=== PATIENT | female | born 1980 | race Caucasian/White ===

== ENCOUNTER 2016-12-30 16:43 | Emergency (ER) | payer OTHER ==
[2016-12-30 17:31] VITALS: BP 147/98; PULSE 118; TEMP 98.4; BMI 39.3
[2016-12-30 18:34] LABS: PH,URINE 5.5 (5.0-8.0); URINE APPEARANCE CLEAR; URINE BILIRUBIN NEGATIVE (NEGATIVE); URINE BLOOD 1+ (NEGATIVE); URINE COLOR LT. YELLOW; URINE GLUCOSE (UA) NEGATIVE (NEGATIVE); URINE KETONE NEGATIVE (NEGATIVE); URINE LEUK ESTERASE NEGATIVE (NEGATIVE); URINE NITRITE NEGATIVE (NEGATIVE); URINE PROTEIN NEGATIVE (NEGATIVE); URINE UROBILINOGEN 0.2 mg/dL (0.2-1.0)
[2016-12-30] MEDS ORDERED: KETOROLAC TROMETHAMINE 60 MG/2 ML VIAL IM ONE (18:42)
[2016-12-30] MEDS ORDERED: KETOROLAC TROMETHAMINE 60 MG/2 ML VIAL ONE (18:43)
--- NOTE | 2016-12-30 18:57 | PDOC ---
History of Present Illness - General Chief Complaint: Back Pain Stated Complaint: BACK/LEG PAIN Time Seen by Provider: 12/30/16 17:41 History Source: Patient Exam Limitations: No Limitations - History of Present Illness Initial Comments: 12/30/16 18:43 came for evaluation of back pain 3 days. States has suffered from kidney stones in the past but states this pain is completely different from that. Is uncertain as to cause, states onset was 3 days ago without activity changes, exercise or recent trauma. States has progressively worsened where is difficult to make any movements. Has taken ibuprofen with minimal resolved. Denies numbness or tingling to toes although has some radiation down her left posterior leg in the sciatic nerve distribution. Denies numbness or tingling to foot, denies any bowel or bladder changes. 12/30/16 18:43 12/31/16 14:30 12/31/16 14:30 Occurred: reports: last week Severity: reports: mild, moderate Pain Location: reports: back Method of Injury: Yes: unknown Modifying Factors: improves with: pain medication Associated Symptoms (Fall): denies symptoms Past History - Travel Traveled outside of the country in the last 30 days: No Close contact w/someone who was outside of country & ill: No - Past Medical History Allergies/Adverse Reactions: Allergies Allergy/AdvReac Type Severity Reaction Status Date / Time No Known Allergies Allergy Verified 12/30/16 17:31 Home Medications: Ambulatory Orders Cyclobenzaprine HCl [Flexeril 10 mg] 10 mg PO BID PRN #14 tablet 12/30/16 Anemia: Yes Asthma: No Cancer: No Cardiac Disorders: No CVA: No COPD: No CHF: No Dementia: No Diabetes: (gestational) GI Disorders: No Disorders: No HTN: Yes Hypercholesterolemia: No Kidney Stones: Yes Liver Disease: No Seizures: No Thyroid Disease: No - Surgical History Cholecystectomy: Yes - Immunization History Immunization Up to Date: No - Suicide/Smoking/Psychosocial Hx Smoking Status: No Smoking History: Former smoker Have you smoked in the past 12 months: No Number of Cigarettes Smoked Daily: 3 If you are a former smoker, when did you quit?: 16yrs Information on smoking cessation initiated: No Hx Alcohol Use: No Drug/Substance Use Hx: No Substance Use Type: None Hx Substance Use Treatment: No Trauma Specific PMHX - Complaint Specific PMHX Back Injury: No Neck Injury: No Review of Systems - Review of Systems Able to Perform ROS?: Yes Is the patient limited Bel[place]ian proficient: Yes Constitutional: Yes: Symptoms Reported, See HPI, Malaise. No: Chills, Fever HEENTM: Yes: See HPI. No: Symptoms Reported Respiratory: Yes: See HPI. No: Symptoms reported, Cough Musculoskeletal: Yes: Symptoms Reported, See HPI, Back Pain, Muscle Weakness Integumentary: Yes: See HPI. No: Symptoms Reported, Pruritus, Rash Neurological: Yes: Symptoms reported, Paresthesia All Other Systems: Reviewed and Negative *Physical Exam - Vital Signs Last Vital Signs Temp Pulse Resp BP Pulse Ox 98.4 F 118 H 20 147/98 100 12/30/16 17:25 12/30/16 17:25 12/30/16 17:25 12/30/16 17:25 12/30/16 17:25 - Physical Exam General Appearance: Yes: Nourished, Appropriately Dressed, Apparent Distress HEENT: positive: GHISLAINE, Normal ENT Inspection, TMs Normal, Pharynx Normal (left leg and buttocks) Neck: positive: Supple, Lymphadenopathy (R), Lymphadenopathy (L). negative: Tender Respiratory/Chest: positive: Lungs Clear, Normal Breath Sounds Musculoskeletal: positive: Normal Inspection, Muscle Spasm (tender tight musculature along the left paravertebral spinous muscles extending from lower thorax up to initial spinous musculature. Palpable spasm noted on the left. Has no vertebral spine tenderness, range of motion limited secondary to this pain to the left muscular wall). negative: Vertebral Tenderness Extremity: positive: Normal Capillary Refill, Normal Range of Motion Integumentary: positive: Normal Color, Warm, Pale Neurologic: positive: chinese teacher II-XII NML intact, Fully Oriented, Alert, Normal Mood/ Affect, Normal Response, Motor Strength 5/5 ED Treatment Course - ADDITIONAL ORDERS Additional order review: Laboratory Results 12/30/16 18:03 Urine HCG, Qual Negative Progress Note - Progress Note Progress Note: Back strain, will treat with NSAIDs and cyclobenzaprine *DC/Admit/Observation/Transfer Diagnosis at time of Disposition: Low back strain Qualifiers: Encounter type: initial encounter Qualified Code(s): S39.012A - Strain of muscle, fascia and tendon of lower back, initial encounter - Discharge Dispostion Disposition: HOME Condition at time of disposition: Good Admit: No - Prescriptions Prescriptions: Cyclobenzaprine HCl [Flexeril 10 mg] 10 mg PO BID PRN #14 tablet PRN Reason: spasm - Referrals Referrals: Vadim Canela [Primary Care Provider] - - Patient Instructions Printed Discharge Instructions: DI for Back Spasm Additional Instructions: Rest, no heavy lifting or exercise until pain is resolved Hot soaks to neck and low back as often as possible/hot showers or Jacuzzis No massage or therapy until spasm is gone Continue ibuprofen 2-200 mg tablets every 6 hours for the next 3 days then as needed for pain and swelling Cyclobenzaprine 1-10mg every 8 hours as needed for spasm If not significant improvement within 24 hours with medication and rest regime, followup with private physician for change in medications and /or therapy.
[2016-12-30] MEDS ORDERED: IBUPROFEN 600 MG TABLET (FP) PO ONE (19:05)
[2016-12-30] MEDS ORDERED: CYCLOBENZAPRINE HCL 10 MG TABLET (FP) ONE (19:05)
[2016-12-30 19:08] LABS: URINE MUCUS RARE; URINE RBC 2 /hpf (0-3); URINE WBC 5 /hpf (3-5)
== END 2016-12-30 19:30 | disposition home or self-care (01) ==
LOC: JER 16:43 → JERFT 16:43
PROC: 3E0233Z Introduction of Anti-inflammatory into Muscle, Percutaneous Approach (ICD-10-PCS; principal; 2016-12-30)
DX: M54.5 Low back pain (principal); S39.012A Strain of muscle, fascia and tendon of lower back, initial encounter; X58.XXXA Exposure to other specified factors, initial encounter; Y93.89 Activity, other specified; Y92.9 Unspecified place or not applicable
CPT/HCPCS: 81003; 81015; 84703; 96372; 99281-25

== ENCOUNTER 2017-01-02 16:08 | Emergency (ER) | payer OTHER ==
[2017-01-02 16:13] VITALS: BP 155/93; PULSE 110; TEMP 98.4; BMI 39.3
[2017-01-02] MEDS ORDERED: predniSONE 20 MG TABLET (UD) PO ONE (19:26)
--- NOTE | 2017-01-02 19:26 | PDOC ---
History of Present Illness - General Chief Complaint: Back Pain Stated Complaint: REVISIT Time Seen by Provider: 01/02/17 18:52 History Source: Patient Exam Limitations: No Limitations - History of Present Illness Initial Comments: 01/02/17 19:29 My chief complaint: Worsening lower back pain with radiation down left leg and tingling of lower left leg History of present illness: Patient is a 36-year-old female with no significant medical history here today with worsening lower back pain mostly on the left side radiating down her left leg to her left foot since 12/24/2016. Patient reports the pain was bearable until 12/29/2016 when she came into the emergency room. Patient was given Rx for cyclobenzaprine and told to take ibuprofen for pain. Patient reports last taking cyclobenzaprine at 12 noon without any relief of symptoms and ibuprofen at 2 PM without relief of pain. She reports the pain is worse when getting up from a seated position or trying to apply any pressure to her left leg. Pain presently is an 8 out of 10. Patient reports that she started to have a tingling sensation in her left medial lower leg to her left medial foot on 01/01/17. She denies any incontinency or any saddle anesthesia. Patient denies doing any heavy lifting or exercise that might of triggered the pain. 01/03/17 08:32 Occurred: reports: other (12/24/16) Severity: reports: severe (lower back pain with radiation down left leg with tingling of lower left legh) Pain Location: reports: back (b/l with radiation down left leg to foot), lower extremity (left leg ) Method of Injury: Yes: unknown Modifying Factors: improves with: None Loss of Consciousness: no loss of consciousness Past History - Past Medical History Allergies/Adverse Reactions: Allergies Allergy/AdvReac Type Severity Reaction Status Date / Time No Known Allergies Allergy Verified 01/02/17 16:09 Home Medications: Ambulatory Orders Cyclobenzaprine HCl [Flexeril 10 mg] 10 mg PO BID PRN #14 tablet 12/30/16 Methylprednisolone [Medrol Dose Magan] 4 mg PO ASDIR #21 tablet 01/02/17 Oxycodone HCl/Acetaminophen [Percocet 5-325 mg Tablet] 1 tab PO Q6H PRN #12 tablet MDD 4 01/02/17 Anemia: Yes Asthma: No Cancer: No Cardiac Disorders: No CVA: No COPD: No CHF: No Dementia: No Diabetes: (gestational) GI Disorders: No Disorders: No HTN: Yes Hypercholesterolemia: No Kidney Stones: Yes Liver Disease: No Seizures: No Thyroid Disease: No - Surgical History Cholecystectomy: Yes - Immunization History Immunization Up to Date: No - Suicide/Smoking/Psychosocial Hx Smoking Status: No Smoking History: Never smoked Have you smoked in the past 12 months: No Number of Cigarettes Smoked Daily: 3 If you are a former smoker, when did you quit?: 16yrs Information on smoking cessation initiated: No Hx Alcohol Use: No Drug/Substance Use Hx: No Substance Use Type: None Hx Substance Use Treatment: No Trauma Specific PMHX - Complaint Specific PMHX Back Injury: No Neck Injury: No Review of Systems - Review of Systems Able to Perform ROS?: Yes Constitutional: No: Symptoms Reported HEENTM: No: Symptoms Reported Respiratory: No: Symptoms reported Cardiac (ROS): No: Symptoms Reported ABD/GI: No: Symptoms Reported : No: Symptoms Reported Musculoskeletal: Yes: Back Pain (b/l ) *Physical Exam - Vital Signs Last Vital Signs Temp Pulse Resp BP Pulse Ox 98.4 F 110 H 20 155/93 100 01/02/17 16:09 01/02/17 16:09 01/02/17 16:09 01/02/17 16:09 01/02/17 16:09 - Physical Exam General Appearance: Yes: Appropriately Dressed Respiratory/Chest: positive: Lungs Clear, Normal Breath Sounds. negative: Chest Tender, Respiratory Distress Cardiovascular: positive: Regular Rhythm, Regular Rate, S1, S2 Vascular Pulses: Dorsalis-Pedis (R): 4+, Doralis-Pedis (L): 4+ Musculoskeletal: positive: Normal Inspection, Decreased Range of Motion (from waist with flexion ). negative: CVA Tenderness, CVA Tenderness (R), CVA Tenderness (L), Muscle Spasm, Vertebral Tenderness Extremity: positive: Normal Capillary Refill, Normal Inspection. negative: Normal Range of Motion (left leg ) Integumentary: positive: Normal Color Neurologic: positive: Alert, Normal Response, Motor Strength 5/5 (motor strength lower b/l ), Respond to painful stimul (b/l legs ), Responsive, Other ( + SLR Left leg ). negative: Numbness, Sensory Deficit Deep Tendon Reflexes: Knee (L): 3+, Knee (R): 4+ Medical Decision Making - Medical Decision Making 01/02/17 19:32 Patient is a 36-year-old female with no significant medical history here today with worsening lower back pain mostly on the left side radiating down her left leg to her left foot since 12/24/2016. Patient reports the pain was bearable until 12/29/2016 when she came into the emergency room. Patient was given Rx for cyclobenzaprine and told to take ibuprofen for pain. Patient reports last taking cyclobenzaprine at 12 noon without any relief of symptoms and ibuprofen at 2 PM without relief of pain. She reports the pain is worse when getting up from a seated position or trying to apply any pressure to her left leg. Pain presently is an 8 out of 10. Patient reports that she started to have a tingling sensation in her left medial lower leg to her left medial foot on 01/01. She denies any incontinency or any saddle anesthesia. Patient denies doing any heavy lifting or exercise that might of triggered the pain. Lower back pain with radiculopathy to left leg with paresthesia to left leg lower Plan: Prednisone 40 mg by mouth now then Medrol Dosepak Percocet 5 mg/325 mg by mouth now than every 6 hrs prn severe pain X-ray lumbar sacral spine no acute abnormality noted Follow-up with orthopedist tomorrow for further evaluation here with Dr. Dejesus 01/02/17 20:04 *DC/Admit/Observation/Transfer Diagnosis at time of Disposition: Lumbar pain with radiation down left leg - Discharge Dispostion Disposition: HOME Condition at time of disposition: Stable - Prescriptions Prescriptions: Methylprednisolone [Medrol Dose Magan] 4 mg PO ASDIR #21 tablet Oxycodone HCl/Acetaminophen [Percocet 5-325 mg Tablet] 1 tab PO Q6H PRN #12 tablet MDD 4 PRN Reason: Severe Pain - Referrals Referrals: Vadim Canela [Primary Care Provider] - Catrachito Dejesus MD [Staff Physician] - - Patient Instructions Additional Instructions: Use crutches for ambulation do not apply any pressure to the left leg Avoid any strenuous activities or turning from your waist if you must turn turned her entire body Follow up with Dr. Dejesus here tomorrow at 12 noon go to 5th floor west Return to emergency room if inability to hold your urine or any numbness of your private area or worsening pain Patient voiced understanding of discharge instructions and all questions were answered
[2017-01-02] MEDS ORDERED: predniSONE 20 MG TABLET (UD) ONE (19:27)
== END 2017-01-02 20:36 | disposition home or self-care (01) ==
LOC: JERFT 16:08
DX: M54.16 Radiculopathy, lumbar region (principal)
CPT/HCPCS: 72100-TC; 99281-25